=== PATIENT | female | born 1955 | race African-American/Black ===

== ENCOUNTER 2017-01-12 13:43 | Emergency (ER) | payer BC ==
[~2017-01-12] VITALS: Ht 160 cm; Wt 115.3 kg
[2017-01-12 14:18] LABS: HEMATOCRIT 41.6 % (34.6-47.8); HEMOGLOBIN 13.5 g/dL (11.7-16.4); WHITE BLOOD COUNT 9.1 x10^3/uL (3.4-10)
[2017-01-12 14:30] LABS: BLOOD UREA NITROGEN 7 mg/dL (7-18)
[2017-01-12] MEDS ORDERED: HYDROmorphone 1 MG/ML, 1ML IM ONE (14:30)
[2017-01-12] MEDS ORDERED: KETOROLAC 60 MG/2 ML IM ONE (14:30)
[2017-01-12] MEDS ORDERED: ONDANSETRON ODT 4 MG PO ONE (14:30)
[2017-01-12] MEDS ORDERED: HYDROmorphone 1 MG/ML, 1ML ONE (14:34)
[2017-01-12] MEDS ORDERED: ONDANSETRON ODT 4 MG ONE (14:34)
[2017-01-12] MEDS ORDERED: KETOROLAC 30 MG/1 ML ONE (14:34)
[2017-01-12 14:59] LABS: PATH.CAST-FLAG NOT PRESENT; SPERM-FLAG NOT PRESENT; SRC-FLAG NOT PRESENT; XTAL-FLAG NOT PRESENT; YLC-FLAG NOT PRESENT
[2017-01-12] MEDS ORDERED: OXYcodone/APAP 5/325MG TABLET PO ONE (15:30)
[2017-01-12] MEDS ORDERED: OXYcodone/APAP 5/325MG TABLET ONE (15:32)
[2017-01-12 15:40] VITALS: BP 129/94
== END 2017-01-12 15:42 | disposition home or self-care (01) ==
LOC: ED 14:06
DX: N20.1 Calculus of ureter (principal); Z87.891 Personal history of nicotine dependence
CPT/HCPCS: 36415; 80048; 81001; 82040; 85025; 96372; 99284; J1170; J1885; Q0162

== ENCOUNTER 2017-02-15 05:06 | Emergency (ER) | payer BC ==
[~2017-02-15] VITALS: Ht 172.7 cm; Wt 102.0 kg
[2017-02-15] MEDS ORDERED: FURO-92 PO (05:22)
[2017-02-15] MEDS ORDERED: AMLO-267 PO (05:22)
[2017-02-15] MEDS ORDERED: ATOR-2 PO (05:23)
[2017-02-15] MEDS ORDERED: GABA300C10 PO (05:23)
[2017-02-15] MEDS ORDERED: ALBU0.63 NEB (05:24)
[2017-02-15] MEDS ORDERED: HYDR-3307 PO (05:24)
[2017-02-15] MEDS ORDERED: CARI250T PO (05:25)
[2017-02-15] MEDS ORDERED: TAMS-11 PO (05:25)
[2017-02-15] MEDS ORDERED: SODIUM CHLORIDE 0.9% 1,000 ML IV ONE (06:15)
[2017-02-15] MEDS ORDERED: MORPHINE SULFATE 4 MG/ML, 1ML ONE (06:27)
[2017-02-15] MEDS ORDERED: ASPIRIN 81 MG TABLET CHEW ONE (06:28)
[2017-02-15] MEDS ORDERED: ONDANSETRON 2MG/ML, 2ML ONE (06:28)
[2017-02-15] MEDS ORDERED: ASPIRIN 81 MG TABLET CHEW PO ONE (06:30)
[2017-02-15] MEDS ORDERED: ONDANSETRON 2MG/ML, 2ML IVPush ONE (06:30)
[2017-02-15] MEDS ORDERED: MORPHINE SULFATE 4 MG/ML, 1ML IVPush PRN (06:30)
[2017-02-15 06:32] LABS: PATH.CAST-FLAG NOT PRESENT; SPERM-FLAG NOT PRESENT; SRC-FLAG NOT PRESENT; XTAL-FLAG NOT PRESENT; YLC-FLAG NOT PRESENT
[2017-02-15 06:34] LABS: HEMATOCRIT 42.8 % (34.6-47.8); HEMOGLOBIN 13.7 g/dL (11.7-16.4); WHITE BLOOD COUNT 8.3 x10^3/uL (3.4-10)
[2017-02-15 06:47] LABS: ASPARTATE AMINO TRANSFERASE 17 U/L (15-37); BLOOD UREA NITROGEN 14 mg/dL (7-18)
[2017-02-15] MEDS ORDERED: CEFTRIAXONE PMX 1GM/50ML 50 ML IVPB ONE (07:00)
[2017-02-15 07:05] LABS: IS PT STATUS REG ER OR PRE ER? YES
[2017-02-15 07:13] VITALS: BP 150/82
[2017-02-15] MEDS ORDERED: CEFTRIAXONE PMX 1GM/50ML 50 ML ONE (07:45)
[2017-02-15] MEDS ORDERED: CEFTRIAXONE 1,000 MG IM ONE (09:00)
[2017-02-15] MEDS ORDERED: CEFTRIAXONE 1,000 MG ONE (09:02)
== END 2017-02-15 09:19 | disposition home or self-care (01) ==
LOC: ED 07:35
DX: R07.89 Other chest pain (principal); N39.0 Urinary tract infection, site not specified; R31.9 Hematuria, unspecified
CPT/HCPCS: 36415; 71020; 74176; 76770; 80053; 81001; 83605; 83690; 83880; 84145; 84484; 85025; 87040; 87077; 87086; 87186; 93005; 96361; 96372; 96374; 96375; 99285; J0696; J2405; J7030

== ENCOUNTER 2017-03-02 13:14 | Emergency (ER) | payer BC ==
[~2017-03-02] VITALS: Ht 162.6 cm; Wt 120.0 kg
[~2017-03-02 13:14] MED LIST: ALBU0.63 NEB; ATOR-2 PO; CARI250T PO; FURO-92 PO; GABA300C10 PO; HYDR-3307 PO; TAMS-11 PO; [UNRECOGNIZED DRUG - CODE] PO
[2017-03-02] MEDS ORDERED: ONDANSETRON 2MG/ML, 2ML IVPush ONE (14:00)
[2017-03-02] MEDS ORDERED: SODIUM CHLORIDE 0.9% 1,000ML IV ONE (14:00)
[2017-03-02] MEDS ORDERED: SODIUM CHLORIDE FLUSH 10ML SYR IVF ONE (14:00)
[2017-03-02] MEDS ORDERED: MORPHINE SULFATE 4 MG/ML, 1ML IVPush PRN (14:00)
[2017-03-02 14:38] LABS: HEMATOCRIT 39.6 % (34.6-47.8); HEMOGLOBIN 12.9 g/dL (11.7-16.4); WHITE BLOOD COUNT 8.3 x10^3/uL (3.4-10)
[2017-03-02] MEDS ORDERED: ONDANSETRON 2MG/ML, 2ML ONE (14:38)
[2017-03-02] MEDS ORDERED: MORPHINE SULFATE 4 MG/ML, 1ML ONE (14:38)
[2017-03-02 14:47] LABS: BLOOD UREA NITROGEN 6 mg/dL (7-18)
[2017-03-02 14:50] LABS: ASPARTATE AMINO TRANSFERASE 15 U/L (15-37)
[2017-03-02] MEDS ORDERED: POTASSIUM CHLORIDE 10% 40 MEQ/30 ML UDC PO ONE (15:00)
[2017-03-02 15:28] VITALS: BP 180/93
== END 2017-03-02 15:43 | disposition home or self-care (01) ==
LOC: ED 15:37
DX: R10.9 Unspecified abdominal pain (principal); I11.0 Hypertensive heart disease with heart failure; I50.9 Heart failure, unspecified; R30.0 Dysuria; R31.9 Hematuria, unspecified; Z91.041 Radiographic dye allergy status
CPT/HCPCS: 36415; 74176; 80053; 81001; 83690; 85025; 93005; 96361; 96374; 96375; 99285; J2405; J7030